=== PATIENT | female | born 1985 | race Caucasian/White ===

== ENCOUNTER 2019-07-10 12:45 | Inpatient (IN) | payer OTHER ==
[~2019-07-10] VITALS: Ht 157.5 cm; Wt 61.0 kg
[2019-07-10 12:49] VITALS: Ht 157.5 cm; Wt 61.0 kg
[2019-07-10 13:21] LABS: BASOPHIL % 0.3 % (0-2); PLATELET COUNT 363 x10^3mcL (130-400); RED CELL DISTRIBUTION WIDTH 13.4 % (11.5-14.5)
[2019-07-10 13:36] LABS: CALCIUM 8.5 mg/dL (8.5-10.1); CARBON DIOXIDE 24.9 mmol/L (21-32); CHLORIDE SERUM 99 mmol/L (98-107); CREATININE SERUM 0.5 mg/dL (0.6-1.0); GFR1 > 60 mL/min; GLUCOSE SERUM 108 mg/dL (74-106); POTASSIUM SERUM 3.3 mmol/L (3.5-5.1); SODIUM SERUM 137 mmol/L (136-145)
[2019-07-10 13:41] LABS: ALKALINE PHOSPHATASE 119 U/L (46-116); ALT/SGPT 74 U/L (14-59); AST/SGOT 31 U/L (15-37); BILIRUBIN TOTAL 0.55 mg/dL (0.20-1.00); LIPASE 52 IU/L (73-393); TOTAL PROTEIN, SERUM 7.3 g/dL (6.4-8.2)
[2019-07-10 13:54] LABS: ALBUMIN 3.3 g/dL (3.4-5.0)
[2019-07-10] MEDS ORDERED: ZOLOFT25 MG (16:44)
[2019-07-10 17:42] VITALS: BP 125/92
[2019-07-10 21:28] VITALS: BP 124/95
[2019-07-11 05:27] VITALS: BP 109/69
[2019-07-11 06:48] LABS: ALKALINE PHOSPHATASE 110 U/L (46-116); ALT/SGPT 64 U/L (14-59); AST/SGOT 23 U/L (15-37); BILIRUBIN TOTAL 0.3 mg/dL (0.20-1.00); CALCIUM 8.6 mg/dL (8.5-10.1); CARBON DIOXIDE 27.5 mmol/L (21-32); CHLORIDE SERUM 106 mmol/L (98-107); CREATININE SERUM 0.6 mg/dL (0.6-1.0); GFR1 > 60 mL/min; GLUCOSE SERUM 102 mg/dL (74-106); MAGNESIUM 1.8 mg/dL (1.8-2.4); POTASSIUM SERUM 4.6 mmol/L (3.5-5.1); SODIUM SERUM 139 mmol/L (136-145); TOTAL PROTEIN, SERUM 6.6 g/dL (6.4-8.2)
[2019-07-11 06:49] LABS: BASOPHIL % 0.4 % (0-2); PLATELET COUNT 324 x10^3mcL (130-400); RED CELL DISTRIBUTION WIDTH 13.6 % (11.5-14.5)
[2019-07-11 06:58] LABS: ALBUMIN 2.8 g/dL (3.4-5.0)
[2019-07-11 08:42] VITALS: BP 104/79
[2019-07-11] MEDS ORDERED: PROTONIX40 MG PO (10:27)
[2019-07-11 13:34] VITALS: BP 104/79
[2019-07-11 14:35] VITALS: BP 120/81
[2019-07-11 16:37] VITALS: BP 112/81
[2019-07-11 21:00] VITALS: BP 101/64
[2019-07-12 00:02] VITALS: BP 112/78
== END 2019-07-12 01:04 | disposition home or self-care (01) | DRG 315 ==
LOC: ED 12:45 → MU 16:27 → DU 16:27 → MU 16:27 → EDBEDREQSVC 16:32 → MU 17:09 → DU 07-11 11:39
PROVIDERS: Emergency Medicine; ADMIT Internal Medicine Pulmonary Disease
DX: I31.3 Pericardial effusion (noninflammatory) (principal); J90 Pleural effusion, not elsewhere classified; F17.210 Nicotine dependence, cigarettes, uncomplicated; F12.10 Cannabis abuse, uncomplicated; F41.9 Anxiety disorder, unspecified; K21.9 Gastro-esophageal reflux disease without esophagitis; K27.9 Peptic ulcer, site unspecified, unspecified as acute or chronic, without hemorrhage or perforation; F10.20 Alcohol dependence, uncomplicated; T51.0X1A Toxic effect of ethanol, accidental (unintentional), initial encounter; Y90.0 Blood alcohol level of less than 20 mg/100 ml; Y92.89 Other specified places as the place of occurrence of the external cause
CPT/HCPCS: G0378; J0696; J1885; J2270; J2405; J7030; J7050; Q0092

== ENCOUNTER 2019-07-18 18:05 | Emergency (ER) | payer OTHER ==
[~2019-07-18] VITALS: Ht 157.5 cm; Wt 59.9 kg
[~2019-07-18 18:05] MED LIST: PROTONIX40 MG PO; ZOLOFT25 MG
[2019-07-18 18:12] VITALS: Ht 157.5 cm; Wt 59.9 kg
[2019-07-18 19:05] LABS: BASOPHIL % 0.2 % (0-2); PLATELET COUNT 409 x10^3mcL (130-400); RED CELL DISTRIBUTION WIDTH 13.9 % (11.5-14.5)
[2019-07-18 19:16] LABS: CARBON DIOXIDE 26.2 mmol/L (21-32); CHLORIDE SERUM 103 mmol/L (98-107); CREATININE SERUM 0.5 mg/dL (0.6-1.0); GFR1 > 60 mL/min; GLUCOSE SERUM 87 mg/dL (74-106); POTASSIUM SERUM 4.5 mmol/L (3.5-5.1); SODIUM SERUM 140 mmol/L (136-145)
[2019-07-18 19:18] LABS: ALBUMIN 2.8 g/dL (3.4-5.0); ALKALINE PHOSPHATASE 116 U/L (46-116); ALT/SGPT 28 U/L (14-59); AST/SGOT 13 U/L (15-37); BILIRUBIN TOTAL 0.12 mg/dL (0.20-1.00); TOTAL PROTEIN, SERUM 7.1 g/dL (6.4-8.2)
[2019-07-18 20:21] VITALS: BP 114/80
== END 2019-07-18 23:04 | disposition home or self-care (01) ==
LOC: ED 18:05
PROVIDERS: Emergency Medicine
DX: R07.89 Other chest pain (principal); R07.0 Pain in throat; R51 Headache; R61 Generalized hyperhidrosis; F17.210 Nicotine dependence, cigarettes, uncomplicated; F41.9 Anxiety disorder, unspecified
CPT/HCPCS: 36415

== ENCOUNTER 2020-08-11 12:00 | Emergency (ER) | payer OTHER ==
[~2020-08-11] VITALS: Ht 157.5 cm; Wt 63.5 kg
[2020-08-11 12:14] VITALS: Ht 157.5 cm; Wt 63.5 kg
[2020-08-11 13:24] VITALS: BP 146/83
== END 2020-08-11 13:24 | disposition home or self-care (01) ==
LOC: ED 12:00
DX: R07.89 Other chest pain (principal)